=== PATIENT | female | born 1990 | race Caucasian/White ===

== ENCOUNTER 2017-01-29 17:40 | Inpatient (IN) | payer BC, OTHER ==
[2017-02-07] MEDS ORDERED: CARBOPROST TROMETHAMINE 250 MCG/ML 1 ML AMP IM PRN (06:37)
[2017-02-07] MEDS ORDERED: LIDOCAINE 1% (PF) 10 MG/ML (30 ML SDV) SQ PRN (06:37)
[2017-02-07] MEDS ORDERED: METHYLERGONOVINE 0.2 MG/ML 1 ML AMP IM PRN (06:37)
[2017-02-07] MEDS ORDERED: TERBUTALINE 1 MG/ML VIAL SQ PRN (06:37)
[2017-02-07] MEDS ORDERED: OXYTOCIN 10 UNIT/ML 1 ML VIAL IM PRN (06:37)
[2017-02-07 06:45] LABS: Basophils % (A) 1 %; CH 30.1; CHCM 34.4; Eosinophils # (A) 0.1 k/uL (0-0.7); Eosinophils % (A) 2 %; HCT 38.7 % (34.0-46.0); HDW 3.02; HGB 13.3 gm/dL (11.4-16.0); Luc # (Auto) 0.28; Luc % (Auto) 4; Lymphocytes # (A) 1.8 k/uL (1.0-4.8); Lymphocytes % (A) 29 %; MCH 30.1 pg (25.0-35.0); MCHC 34.2 g/dL (31.0-37.0); Mean Platelet Volume 8.5; Monocytes # (A) 0.5 k/uL (0-1.0); Monocytes % (A) 7 %; Neutrophils # (A) 3.7 k/uL (1.3-7.7); Neutrophils % (A) 58 %; RDW 15.1 % (11.5-15.5); WBC 6.5 k/uL (3.8-10.6); WBC (Perox) 6.79
[2017-02-07] MEDS ORDERED: OXYTOCIN 20 UNITS/1000 ML NS 1,000 ML IV SCH (06:45)
[2017-02-07] MEDS: LACTATED RINGERS 1,000 ML IV SCH ×2 (06:49→13:38)
--- NOTE | 2017-02-07 07:02 | P.HPOB ---
History of Present Illness H&P Date: 02/07/17 This is a 26-year-old white female 1 para 0 EDC 01/29/2017 at 41-2/7 weeks' gestation. Patient presents this morning for induction for postdates . She denies uterine contractions, fluid leakage, or vaginal bleeding. Fetus is been active throughout the . history is significant for blood type O positive, group B strep cultures positive, rubella status immune. VDRL testing, hepatitis B surface antigen, gonorrhea and chlamydia cultures, urine culture, hepatitis B surface antigen all negative. One-hour Glucola 123. Past medical history is significant for Campbell's thyroiditis and anemia. Current medications levothyroxine 25 mg once daily, vitamin daily. ALLERGIES none known. Social history patient is , she is a nonsmoker, she denies alcohol or drug use. On exam this is a pleasant white female, 5 foot 10-1/2 inches, 203 pounds, vital signs are stable and patient is afebrile. General physical exam is within normal limits. Fundus is obviously gravid, fundal height 40 cm. heart rate is in the 140s with frequent accelerations, consistent with reactive NST. Cervix is 1 cm dilated, -2 station, 80% effaced, vertex presentation, soft. Artificial amniorrhexis reveals clear fluid. There are no uterine contractions noted at this time. Impression: 41-2/7 weeks intrauterine , here for induction of labor. Positive group B strep cultures. Plan: Penicillin G per hospital protocol. Oxytocin per hospital protocol. Close maternal and surveillance. Anticipate normal spontaneous vaginal delivery. Medications and Allergies Home Medications Medication Instructions Recorded Confirmed Type Levothyroxine Sodium 1 tab PO DAILY 02/07/17 02/07/17 History Pnv,Calcium 72/Iron/Folic Acid 1 tab PO DAILY 02/07/17 02/07/17 History [ Plus Tablet] Sertraline [Zoloft] 1 tab PO DAILY 02/07/17 02/07/17 History Allergies Allergy/AdvReac Type Severity Reaction Status Date / Time No Known Allergies Allergy Verified 02/07/17 06:25 Exam - Vital Signs Vital signs: Intake and Output 02/06/17 02/06/17 02/07/17 14:59 22:59 06:59 Other: Weight 92.079 kg Patient Weight 02/07/17 06:59 Weight 92.079 kg Results Result Diagrams: 02/07/17 06:30 Abnormal Lab Results - Last 24 Hours (Table) 02/07/17 Range/Units 06:30 Plt Count 133 L (150-450) k/uL
[2017-02-07] MEDS ORDERED: PENICILLIN G POTASSIUM 5,000,000 UNIT in DEXTROSE 5% IN WATER 100 ML IV STA ×2 (07:15)
[2017-02-07] MEDS ORDERED: BUTORPHANOL 1 MG/ML 1 ML VIAL IV PRN (11:19)
[2017-02-07] MEDS: PENICILLIN G POTASSIUM 2,500,000 UNIT in DEXTROSE 5% IN WATER 100 ML IV SCH ×6 (13:30→20:43)
[2017-02-07] MEDS ORDERED: BUPIVACAINE (PF) 0.25% 30 ML VIAL ONE (14:25)
[2017-02-07] MEDS ORDERED: fentaNYL (PF) 50 MCG/ML 5 ML AMP ONE (14:25)
[2017-02-07] MEDS ORDERED: SODIUM CHLORIDE 0.9% 100 ML BAG ONE (14:25)
[2017-02-07] MEDS ORDERED: BUPIVACAINE (PF) 0.25% 25 ML, fentaNYL (PF) 200 MCG in SODIUM CHLORIDE 0.9% 71 ML EPIDURAL ONE (17:17)
[2017-02-07] MEDS ORDERED: WITCH HAZEL 1 EACH MED..PAD TOPICAL PRN (19:09)
[2017-02-07] MEDS ORDERED: ZOLPIDEM 5 MG TAB PO PRN (19:09)
[2017-02-07] MEDS ORDERED: diphenhydrAMINE 25 MG CAP PO PRN (19:09)
[2017-02-07] MEDS ORDERED: Acetaminophen-Codeine 300-30mg TAB PO PRN (19:09)
[2017-02-07] MEDS ORDERED: LANOLIN CREAM 5 GM TUBE TOPICAL PRN (19:09)
[2017-02-07] MEDS ORDERED: BENZOCAINE SPRAY 57GM TOPICAL PRN (19:09)
[2017-02-07] MEDS ORDERED: ACETAMINOPHEN TAB 325 MG TAB PO PRN (19:09)
[2017-02-07] MEDS ORDERED: diphenhydrAMINE 50 MG/ML 1 ML VIAL IVP PRN ×2 (19:09)
[2017-02-07] MEDS ORDERED: diphenhydrAMINE 50 MG CAP PO PRN (19:09)
[2017-02-07] MEDS ORDERED: HYDROCORTISONE 2.5% RECTAL CREAM 30 GM TUBE RECTAL PRN (19:09)
[2017-02-07] MEDS ORDERED: SIMETHICONE 80 MG CHEWABLE PO PRN (19:09)
--- NOTE | 2017-02-07 19:09 | P.PROBDLV ---
Vaginal Delivery Note - . Vaginal Delivery Note: This is a 26-year-old white female 1 para 0 EDC 01/29/2017 at 41-2/7 weeks' gestation. Patient presented earlier this morning for induction for postdates . Cervix was favorable, remarkable for positive group B strep cultures, blood type O positive, rubella status immune. Please see my dictated history and physical for details. Artificial amniorrhexis revealed clear fluid. Oxytocin was started and titrated per hospital protocol. Patient eventually requested an epidural and this was placed without difficulty per the anesthesia staff. She progressed well through the first stage of labor and was judged to be completely dilated at 1741 hours. 3 doses of penicillin G were given per hospital protocol. Patient pushed successfully in the dorsal lithotomy position. The perineal body was ultimately prepped and draped in usual sterile fashion. 's head delivered occiput anterior and she restituted accordingly. There was no nuchal cord noted. The oropharynx, nasopharynx, and external nares were bulb suctioned on the perineal body. Patient was officially delivered of a liveborn female at 1850 hours. The umbilical cord was doubly clamped and ligated , she was handed to waiting nurses for evaluation where scores of 8 and 9 at one and 5 minutes respectively were given. The placenta delivered spontaneously, it was inspected and noted to be intact with trivascular cord at 1852 hours. At this time the perineal body was redraped. Inspection of the cervix, vagina, perineum and periurethral areas along with perirectal areas revealed a small spontaneous second-degree perineal laceration. This was repaired in the usual fashion using 3-0 Vicryl suture for excellent reapproximation. The fundus is firm and in the midline, symmetric and 18 week size upon completion of delivery. Infant weighed 3610 g or 7 lbs. 15 oz. Estimated blood loss 250 mL's. The patient her baby and family were all allowed to begin the bonding experience in the LDR.
[2017-02-07] MEDS: SENNOSIDES-DOCUSATE SODIUM 1 EACH TAB PO SCH (21:24)
[2017-02-08] MEDS: IBUPROFEN 600 MG TAB PO PRN ×3 (04:14→20:30)
[2017-02-08 04:24] VITALS: RESP 16
--- NOTE | 2017-02-08 07:52 | P.DS ---
Providers Date of admission: 02/07/17 06:08 Expected date of discharge: 02/08/17 Attending physician: Tasneem Jacobo Primary care physician: Christina Smith [facility] Hospital Course: This is a 26-year-old white female 1 para 0 EDC 01/29/2017 at 41-2/7 weeks' gestation. Patient presented for induction for postdates . was remarkable for positive group B strep cultures, blood type O+, rubella status immune. essentially otherwise unremarkable. Please see my dictated history and physical for details. Artificial amniorrhexis revealed clear fluid. Patient went on to deliver a liveborn female infant with scores of 8 and 9 at one and 5 minutes respectively. weighed 7 lbs. 15 oz. or 3610 g. Estimated blood loss was recorded at 250 mL's. There was a small second-degree spontaneous laceration easily repaired, please see my dictated delivery note for details. This morning the patient is doing well. She is voiding, ambulating, passing flatus without difficulty. Vital signs are stable and she is afebrile. Perineal body is clean and dry. Fundus is firm, midline, symmetric, 18 week size. Breast-feeding is going well, breasts are not engorged. is doing well. Patient will be discharged home later today in good condition. She is reminded no intercourse, tampons or douching. She will use mass-jwy-acembej ibuprofen products as needed for pain, 200 mg pills, 3 every 6 hours when necessary. I' ve asked her to call with any fevers shakes or chills, foul smelling or copious lochia, with the passage of large blood clots, with any pain not alleviated by cata-ego-prysigu ibuprofen, or indeed with any concerns. I have given her prescription for a breast pump. I've reviewed with her the options for contraception and we will discuss this further in the office. Patient Condition at Discharge: Good Plan - Discharge Summary New Discharge Prescriptions: No Action Sertraline [Zoloft] 1 tab PO DAILY Levothyroxine Sodium 1 tab PO DAILY Pnv,Calcium 72/Iron/Folic Acid [ Plus Tablet] 1 tab PO DAILY Discharge Medication List Levothyroxine Sodium 1 tab PO DAILY 02/07/17 [History] Pnv,Calcium 72/Iron/Folic Acid [ Plus Tablet] 1 tab PO DAILY 02/07/17 [ History] Sertraline [Zoloft] 1 tab PO DAILY 02/07/17 [History] Follow up Appointment(s)/Referral(s): Tasneem Jacobo MD [STAFF PHYSICIAN] - 6 Weeks Discharge Disposition: HOME SELF-CARE
[2017-02-08] MEDS: SENNOSIDES-DOCUSATE SODIUM 1 EACH TAB PO SCH ×2 (08:37→20:30)
[2017-02-08 17:09] VITALS: BP 138/81; PULSE 78; TEMP 98.1
== END 2017-02-08 20:55 | disposition home or self-care (01) | DRG 775 ==
LOC: 4FBP 02-07 06:08
PROVIDERS: ADMIT Obstetrics & Gynecology; ATTEND Obstetrics & Gynecology
PROC: 3E033VJ Introduction of Other Hormone into Peripheral Vein, Percutaneous Approach (ICD-10-PCS; principal; 2017-02-07)
PROC: 3E0R3CZ (ICD-10-PCS; principal; 2017-02-07)
PROC: 10E0XZZ Delivery of Products of Conception, External Approach (ICD-10-PCS; principal; 2017-02-07)
PROC: 0KQM0ZZ Repair Perineum Muscle, Open Approach (ICD-10-PCS; principal; 2017-02-07)
PROC: 10907ZC Drainage of Amniotic Fluid, Therapeutic from Products of Conception, Via Natural or Artificial Opening (ICD-10-PCS; principal; 2017-02-07)
PROC: 00HU33Z Insertion of Infusion Device into Spinal Canal, Percutaneous Approach (ICD-10-PCS; principal; 2017-02-07)
DX: O48.0 Post-term pregnancy (principal); E06.3 Autoimmune thyroiditis; Z37.0 Single live birth; O99.284 Endocrine, nutritional and metabolic diseases complicating childbirth; O70.1 Second degree perineal laceration during delivery; Z3A.41 41 weeks gestation of pregnancy; O99.824 Streptococcus B carrier state complicating childbirth; Z79.899 Other long term (current) drug therapy
CPT/HCPCS: 85025; 88307

== ENCOUNTER 2022-02-01 05:54 | Inpatient (IN) | payer BC ==
[2022-02-01] MEDS ORDERED: LIDOCAINE 0.5% (PF) 5 MG/ML (50 ML SDV) SQ PRN (06:22)
[2022-02-01] MEDS ORDERED: CARBOPROST TROMETHAMINE 250 MCG/ML 1 ML AMP IM PRN (06:22)
[2022-02-01] MEDS ORDERED: OXYTOCIN 10 UNIT/ML 1 ML VIAL IM PRN (06:22)
[2022-02-01] MEDS ORDERED: METHYLERGONOVINE 0.2 MG/ML 1 ML AMP IM PRN (06:22)
[2022-02-01] MEDS ORDERED: TERBUTALINE 1 MG/ML VIAL SQ PRN (06:22)
[2022-02-01] MEDS ORDERED: AMPICILLIN 2,000 MG in SODIUM CHLORIDE 0.9% 100 ML IVPB STA (06:22)
[2022-02-01] MEDS ORDERED: OXYTOCIN 30 UNITS/500 ML NS 30 UNIT in SALINE 1 500ML.BAG IV SCH (06:30)
[2022-02-01] MEDS: LACTATED RINGERS 1,000 ML IV SCH ×3 (06:48→12:15)
--- NOTE | 2022-02-01 07:53 | P.HPOB ---
History of Present Illness H&P Date: 02/01/22 Chief Complaint: Here for elective induction of labor with favorable multiparous cervix This is a 31-year-old white female 2 per 1001 EDC 02/08/2020 to 39 and one sevenths weeks' gestation who presents for induction with favorable multiparous cervix. Fetus is been active throughout the . She is having mild irregular spontaneous contractions. She denies fluid leakage or vaginal bleeding. Past medical history significant for anxiety, Campbell's thyroiditis, irregular heartbeat, anemia. Past surgical history is negative. Current medications albuterol inhaler when necessary, levothyroxine 75 MCG's once daily, vitamin daily, sertraline 50 mg tablets once daily. ALLERGIES none known. Family history significant for hypertension, stroke, breast cancer, gout, anemia. Reproductive history normal spontaneous vaginal delivery female at 2017, 7 lbs. 15 oz. history is significant for blood type O+, rubella status immune. VDRL testing, hepatitis B surface antigen, HIV testing, urine culture, gonorrhea and chlamydia cultures all negative. One-hour Glucola 87. Group B strep cultures positive. On exam patient is 5 foot 10 inches, 214 pounds, blood pressure 133/76. General physical exam is within normal limits. Cervix is 3-4 cm dilated, 60% effaced, - 2 station, soft, anterior, vertex. Artificial amniorrhexis reveals abundant clear fluid. heart rate is consistent with reactive NST. Impression: 39 and one sevenths weeks intrauterine , here for induction of labor, all signs reassuring, positive group B strep cultures noted. Plan: Antibiotics are already infusing. Oxytocin per hospital protocol. Continue close maternal and surveillance. Anticipate normal spontaneous vaginal delivery. Analgesic options reviewed with the patient. Review of Systems Constitutional: Reports as per HPI Past Medical History Past Medical History: Thyroid Disorder Additional Past Medical History / Comment(s): hypothyroidism, History of Any Multi-Drug Resistant Organisms: None Reported Past Surgical History: No Surgical Hx Reported Past Anesthesia/Blood Transfusion Reactions: No Reported Reaction Past Psychological History: Anxiety, Panic Disorder Smoking Status: Never smoker Past Alcohol Use History: None Reported Past Drug Use History: None Reported - Past Family History Mother Family Medical History: Hypertension Medications and Allergies Home Medications Medication Instructions Recorded Confirmed Type Levothyroxine Sodium 1 tab PO DAILY 02/07/17 02/01/22 History Pnv,Calcium 72/Iron/Folic Acid 1 tab PO DAILY 02/07/17 02/01/22 History [ Plus Tablet] Sertraline [Zoloft] 1 tab PO DAILY 02/07/17 02/01/22 History Allergies Allergy/AdvReac Type Severity Reaction Status Date / Time No Known Allergies Allergy Verified 02/01/22 06:21 Exam Vital Signs Temp Pulse Resp BP 02/01/22 06:20 96.4 F L 87 16 133/76 Intake and Output 01/31/22 02/01/22 02/01/22 22:59 06:59 14:59 Other: Weight 97.069 kg As per dictation Assessment and Plan Assessment: Federico 9 and one sevenths week intrauterine , here for elective induction of labor, all signs reassuring, positive group B strep cultures, antibiotics already infusing. Plan: Penicillin G per hospital protocol. Oxytocin per hospital protocol. Analgesic options reviewed. Close maternal and surveillance. Anticipate normal spontaneous vaginal delivery. Time with Patient: Less than 30
[2022-02-01 07:57] LABS: Anisocytosis Slight; Basophils % (A) 0 %; Eosinophils # (A) 0.1 k/uL (0-0.7); Eosinophils % (A) 2 %; HCT 37.5 % (34.0-46.0); HGB 12.1 gm/dL (11.4-16.0); Hypochromasia Slight; Lymphocytes # (A) 1.6 k/uL (1.0-4.8); Lymphocytes % (A) 27 %; MCH 28.2 pg (25.0-35.0); MCHC 32.2 g/dL (31.0-37.0); MCV 87.6 fL (80.0-100.0); Mean Platelet Volume 9.7; Monocytes # (A) 0.4 k/uL (0-1.0); Monocytes % (A) 6 %; Neutrophils # (A) 3.5 k/uL (1.3-7.7); Neutrophils % (A) 60 %; Platelet Count 141 k/uL (150-450); RBC 4.28 m/uL (3.80-5.40); RDW 16.2 % (11.5-15.5); WBC 5.8 k/uL (3.8-10.6)
[2022-02-01] MEDS: AMPICILLIN 1,000 MG in SODIUM CHLORIDE 0.9% 50 ML IVPB SCH ×2 (10:41→15:33)
[2022-02-01] MEDS ORDERED: ROPIVACAINE 5MG/ML 20ML VIAL ONE (10:43)
[2022-02-01] MEDS ORDERED: fentaNYL (PF) 50 MCG/ML 5 ML AMP ONE (10:43)
[2022-02-01] MEDS ORDERED: SODIUM CHLORIDE 0.9% 100 ML BAG ONE (10:43)
[2022-02-01] MEDS ORDERED: LANOLIN CREAM 5 GM TUBE TOPICAL PRN (15:21)
[2022-02-01] MEDS ORDERED: SIMETHICONE 80 MG CHEWABLE PO PRN (15:21)
[2022-02-01] MEDS ORDERED: diphenhydrAMINE 50 MG CAP PO PRN (15:21)
[2022-02-01] MEDS ORDERED: ZOLPIDEM 5 MG TAB PO PRN (15:21)
[2022-02-01] MEDS ORDERED: HYDROCORTISONE 2.5% RECTAL CREAM 30 GM TUBE RECTAL PRN (15:21)
[2022-02-01] MEDS ORDERED: diphenhydrAMINE 25 MG CAP PO PRN (15:21)
[2022-02-01] MEDS ORDERED: diphenhydrAMINE 50 MG/ML 1 ML VIAL IVP PRN ×2 (15:21)
[2022-02-01] MEDS ORDERED: BENZOCAINE/MENTHOL SPRAY 1 GM/SPRAY AEROSOL TOPICAL PRN (15:21)
--- NOTE | 2022-02-01 15:21 | P.PROBDLV ---
Vaginal Delivery Note - . Vaginal Delivery Note: This is a 31-year-old female 2 para 1001 EDC 02/07/2022 at 39 and one sevenths weeks' gestation. Patient presented this morning for induction with favorable multiparous cervix. is remarkable for blood type O+, rubella status immune, group B strep cultures positive. Please see dictated history and physical for details. Oxytocin was started per hospital protocol. Antibiotics were given, 2 doses received. Epidural was placed per her request. heart tones were reassuring throughout the first and second stages of labor. Artificial amniorrhexis revealed very lightly stained meconium-stained fluid. Patient progressed well through the first stage of labor and became completely dilated at 1424 hrs. and began the second stage of labor at that time. With excellent maternal expulsive efforts the 's head ultimately crowned on the perineum. The perineal body was prepped and draped in usual sterile fashion. Infant's head delivered occiput anterior and he restituted accordingly. There was no nuchal cord noted. The right or anterior shoulder was delivered easily from underneath the pubic symphysis at which time the oropharynx, nasopharynx, and external nares were all bulb suctioned. Patient was officially delivered of a liveborn male infant at 15 4 hours. Umbilical cord was doubly clamped and ligated, he was handed to waiting fish filleter for evaluation where scores of 9 and 9 at one and 5 minutes respectively were given. Infant weighs 9 lbs. 2 oz. or 4130 g. The placenta delivered spontaneously, it was inspected and noted to be intact with trivascular cord. Uterus is then massaged. Careful inspection of cervix, vagina, perineum, periurethral, and perirectal areas reveals a small first-degree perineal laceration easily repaired in the usual fashion using repeat suture. All sponge needle and enhancement counts are correct. Total estimated blood loss 300 mL's. Patient and her are requesting circumcision further infant son.
[2022-02-01] MEDS: IBUPROFEN 600 MG TAB PO PRN (17:08)
[2022-02-01] MEDS ORDERED: BUTORPHANOL 1 MG/ML 1 ML VIAL IV ONE (18:30)
--- NOTE | 2022-02-01 18:55 | P.PN ---
Subjective Progress Note Date: 02/01/22 Principal diagnosis: 3 hours status post vaginal delivery, increased vaginal bleeding at the bedside Estimated post bleeding per nursing staff 300 mL, with clots. Objective - Vital Signs Vital signs: Vital Signs Temp 98.2 F 02/01/22 15:30 Pulse 77 02/01/22 18:41 Resp 17 02/01/22 18:41 BP 134/86 02/01/22 18:41 Pulse Ox FiO2 Intake & Output 01/31/22 02/01/22 02/01/22 18:59 06:59 18:59 Intake Total 2217.033 Output Total 1520 Balance 697.033 Weight 97.069 kg Intake: IV 2000 Intake, IV Titration 217.033 Amount Oxytocin 30 Units/500 ml 217.033 Ns 30 unit In Saline 1 500ml.bag @ Per Protocol IV .Q0M [facility] Rx#:[id number] Output: Urine 600 Estimated Blood Loss 300 Output, Quantitative 620 Blood Loss - Constitutional General appearance: Present: average body habitus, cooperative - EENT Eyes: Present: PERRLA ENT: Present: hearing grossly normal - Respiratory Respiratory: bilateral: CTA - Cardiovascular Rhythm: regular - Gastrointestinal General gastrointestinal: Present: normal bowel sounds - Genitourinary Genitourinary Comment(s): Fundus firm, symmetric, midline, 18 week size. Examination at the bedside after 1 mg of Stadol given intravenously. Cervix fully intact. Perineal body intact. Internal examination of the intrauterine cavity revealed several small to moderate blood clots. Cavity is negative otherwise to palpation, intact, no products of conception or other issues identified. - Integumentary Integumentary: Present: normal - Neurologic Neurologic: Present: CNII-XII intact - Musculoskeletal Musculoskeletal: Present: strength equal bilaterally - Psychiatric Psychiatric: Present: A&O x's 3 - Labs CBC & Chem 7: 02/01/22 07:17 Labs: Abnormal Lab Results - Last 24 Hours (Table) 02/01/22 Range/Units 07:17 RDW 16.2 H (11.5-15.5) % Plt Count 141 L (150-450) k/uL Assessment and Plan Assessment: Federico 9 and one sevenths week intrauterine , here for elective induction of labor, all signs reassuring, positive group B strep cultures, antibiotics already infusing. (1) bleeding Narrative/Plan: We'll check CBC now. Methergine given. Good results. Continue IV through the night. Continue bedside massage of the uterus, call with any increased bleeding. Vital signs are stable and patient is asymptomatic at this time. Minimal bleeding currently. Current Visit: Yes Status: Acute Code(s): O72.1 - OTHER IMMEDIATE HEMORRHAGE SNOMED Code(s): 04735551 Plan: Penicillin G per hospital protocol. Oxytocin per hospital protocol. Analgesic options reviewed. Close maternal and surveillance. Anticipate normal spontaneous vaginal delivery. Time with Patient: Less than 30
[2022-02-01] MEDS ORDERED: miSOPROStoL 200 MCG TAB RECTAL ONE (19:09)
[2022-02-01 19:51] LABS: Basophils % (A) 0 %; Eosinophils % (A) 0 %; HGB 11.9 gm/dL (11.4-16.0); Lymphocytes # (A) 1.4 k/uL (1.0-4.8); Lymphocytes % (A) 9 %; MCH 27.4 pg (25.0-35.0); MCHC 31.2 g/dL (31.0-37.0); MCV 87.7 fL (80.0-100.0); Mean Platelet Volume 9.8; Monocytes # (A) 0.9 k/uL (0-1.0); Monocytes % (A) 6 %; Neutrophils # (A) 11.9 k/uL (1.3-7.7); Neutrophils % (A) 83 %; Platelet Count 129 k/uL (150-450); RBC 4.33 m/uL (3.80-5.40); RDW 15.9 % (11.5-15.5); WBC 14.4 k/uL (3.8-10.6)
[2022-02-01 20:13] VITALS: RESP 16
[2022-02-01] MEDS: SENNOSIDES-DOCUSATE SODIUM 1 EACH TAB PO SCH (20:37)
[2022-02-01] MEDS: ACETAMINOPHEN TAB 325 MG TAB PO PRN (20:38)
[2022-02-01] MEDS: SERTRALINE 25 MG TAB PO SCH (20:38)
[2022-02-02] MEDS: IBUPROFEN 600 MG TAB PO PRN ×3 (01:58→14:22)
[2022-02-02] MEDS: ACETAMINOPHEN TAB 325 MG TAB PO PRN ×2 (06:01→12:31)
[2022-02-02] MEDS ORDERED: LEVOTHYROXINE 75 MCG TAB PO SCH (06:30)
[2022-02-02 07:12] LABS: Anisocytosis Slight; Basophils % (A) 0 %; Eosinophils # (A) 0.1 k/uL (0-0.7); Eosinophils % (A) 1 %; HCT 34.4 % (34.0-46.0); HGB 10.9 gm/dL (11.4-16.0); Lymphocytes # (A) 1.6 k/uL (1.0-4.8); Lymphocytes % (A) 17 %; MCH 27.8 pg (25.0-35.0); MCHC 31.8 g/dL (31.0-37.0); MCV 87.6 fL (80.0-100.0); Mean Platelet Volume 10.1; Monocytes # (A) 0.7 k/uL (0-1.0); Monocytes % (A) 8 %; Neutrophils % (A) 72 %; Platelet Count 127 k/uL (150-450); RBC 3.92 m/uL (3.80-5.40); RDW 16.2 % (11.5-15.5); WBC 9.8 k/uL (3.8-10.6)
[2022-02-02] MEDS: SENNOSIDES-DOCUSATE SODIUM 1 EACH TAB PO SCH (08:19)
[2022-02-02] MEDS: SERTRALINE 25 MG TAB PO SCH (08:19)
--- NOTE | 2022-02-02 09:18 | P.DS ---
Providers Date of admission: 02/01/22 05:54 Expected date of discharge: 02/02/22 Attending physician: Tasneem Jacobo Primary care physician: Alessia Kelly - Discharge Diagnosis(es) (1) bleeding Current Visit: Yes Status: Acute Hospital Course: This is a 31-year-old white female 2 para 1001 EDC 02/08/2020 to 39 and one sevenths weeks' gestation who presented with a favorable multiparous cervix for induction of labor. Artificial amniorrhexis revealed thin meconium-stained fluid. Blood type O+, rubella status immune. Group B strep cultures positive. Please see dictation for details. Penicillin G was given 2 doses. The dura was placed per the patient's request. Patient went on to deliver vaginally a liveborn male infant with scores of 9 and 9 at one and 5 minutes respectively. He weighed 9 lbs. 2 oz. or 4130 g. There was a small first-degree perineal laceration easily repaired. After delivery, vaginal bleeding was somewhat brisk with clot passage. Examination at the bedside manually revealed intrauterine clots which were removed successfully. Methergine was given 1, and Cytotec placed per rectum 1000 mg. Excellent and immediate results were obtained. New This morning the patient is doing well. Her bleeding is minimal. Her pain is minimal. She has no complaints. There is no dizziness or lightheadedness. Hemoglobin this morning is stable at 10.9, platelets 127,000. Fundus is firm and in the midline, symmetric, 18 week size, minimally tender. Extremities are negative for edema. Chest is clear in all johns. circumcision has been performed. Patient is judged to be in good condition for discharge home. She will continue taking her vitamin daily. She will call with any fevers shakes or chills, foul smelling or copious lochia, with the passage of large blood clots, with any pain not alleviated by [id number] products, or indeed with any concerns. We have briefly discussed options for contraception and we will discuss this further in the office. [place] infant will follow-up with body component engineer as per recommendations. Assessment: Doing well post day #1 Patient Condition at Discharge: Good Plan - Discharge Summary Discharge Rx Participant: No New Discharge Prescriptions: No Action Sertraline [Zoloft] 1 tab PO DAILY Levothyroxine Sodium 1 tab PO DAILY Pnv,Calcium 72/Iron/Folic Acid [ Plus Tablet] 1 tab PO DAILY Discharge Medication List Levothyroxine Sodium 1 tab PO DAILY 02/07/17 [History] Pnv,Calcium 72/Iron/Folic Acid [ Plus Tablet] 1 tab PO DAILY 02/07/17 [History] Sertraline [Zoloft] 1 tab PO DAILY 02/07/17 [History] Follow up Appointment(s)/Referral(s): Tasneem Jacobo MD [STAFF PHYSICIAN] - 6 Weeks Discharge Disposition: HOME SELF-CARE
[2022-02-02 15:29] VITALS: BP 138/78; PULSE 82; TEMP 97.7
== END 2022-02-02 16:24 | disposition home or self-care (01) | DRG 806 ==
LOC: 4FBP 05:54
PROVIDERS: ADMIT Obstetrics & Gynecology; ATTEND Obstetrics & Gynecology
PROC: 10E0XZZ Delivery of Products of Conception, External Approach (ICD-10-PCS; principal; 2022-02-01)
PROC: 0HQ9XZZ Repair Perineum Skin, External Approach (ICD-10-PCS; 2022-02-01)
DX: O70.0 First degree perineal laceration during delivery (principal); O72.1 Other immediate postpartum hemorrhage; Z37.0 Single live birth; E06.3 Autoimmune thyroiditis; F41.0 Panic disorder [episodic paroxysmal anxiety]; O77.0 Labor and delivery complicated by meconium in amniotic fluid; O99.344 Other mental disorders complicating childbirth; Z79.899 Other long term (current) drug therapy
CPT/HCPCS: 85025; 86850; 86900; 86901

== ENCOUNTER 2024-09-24 08:41 | Day surgery (SDC) | payer BC ==
[~2024-09-24 08:41] MED LIST: Pre Op ABX Message 1 EACH MISC MISCELLANE ONE
[2024-09-24] MEDS ORDERED: HYDROmorphone 0.5 MG/0.5 ML SYRINGE IVP PRN (09:01)
[2024-09-24] MEDS ORDERED: MIDAZOLAM 2 MG/2 ML VIAL IV PRN (09:01)
--- NOTE | 2024-09-24 09:24 | P.HPIHPCON ---
History of Present Illness H&P Date: 09/24/24 Chief Complaint: Abnormal uterine bleeding, endometrial polyp Ms. Dominguez is a 34 year [id number] presenting for surgical management of AUB and endometrial polyp. Recent US of the pelvis showed a 9cm uterine with a 7mm endometrial polyp. Consent for Procedure: I have explained the operation/procedure to the patient, including the risks, benefits, side effects, alternative therapies (including not receiving the proposed treatment or service), the likelihood of the patient achieving his/her goals, and potential recuperation problems for the procedure/sedation/analgesia, as well as any blood products, if indicated. I also explained to the patient the risks, benefits and side effects of the alternatives, as well as the risks related to not receiving the proposed procedure, care, treatment, or services. Past Medical History Past Medical History: Thyroid Disorder Additional Past Medical History / Comment(s): hypothyroidism, History of Any Multi-Drug Resistant Organisms: None Reported Past Surgical History: No Surgical Hx Reported Past Anesthesia/Blood Transfusion Reactions: No Reported Reaction Smoking Status: Never smoker - Past Family History Mother Family Medical History: Hypertension Medications and Allergies Home Medications Medication Instructions Recorded Confirmed Type Levothyroxine Sodium 1 tab PO DAILY 02/07/17 09/24/24 History Sertraline [Zoloft] 1 tab PO DAILY 02/07/17 09/24/24 History Incassia 1 tab PO DAILY 09/20/24 09/24/24 History Allergies Allergy/AdvReac Type Severity Reaction Status Date / Time diltiazem Allergy Rash/Hives Verified 09/24/24 09:06 Surgical - Exam Focused physical exam is performed. This is a healthy-appearing female in no apparent distress. Breathing is non-labored. Abdomen is soft and non-tender. Extremities non-tender and non-edematous. Assessment and Plan Assessment: 34 year old presenting for surgical management of AUB and endometrial polyp Plan: Risks, benefits, and alternatives to Hysteroscopy D&C with Myosure Polypectomy, Liletta IUD insertion are discussed with the patient including risk of bleeding, infection, uterine perforation, damage to surrounding structures, IUD expulsion, unscheduled bleeding after IUD insertion. Patient understands these risks and desires to proceed with surgery as discussed. All questions answered.
[2024-09-24] MEDS: IV FLUID CONTINUATION 1,000 ML IV ONE (09:30)
[2024-09-24] MEDS: LACTATED RINGERS 1,000 ML IV SCH (09:30)
[2024-09-24] MEDS: DEXAMETHASONE SOD PHOSPHATE 4 MG/ML 1 ML VIAL IV ONE (09:35)
[2024-09-24] MEDS: ONDANSETRON 4 MG/2 ML VIAL IVP ONE (09:35)
[2024-09-24] MEDS: SCOPOLAMINE 1 MG/72 HR PATCH TRANSDERM ONE (09:36)
[2024-09-24] MEDS ORDERED: PROPOFOL 10 MG/ML 20 ML VIAL IV ONE (09:55)
[2024-09-24] MEDS ORDERED: MIDAZOLAM 2 MG/2 ML VIAL ONE (09:55)
[2024-09-24] MEDS ORDERED: fentaNYL (PF) 50 MCG/ML 2 ML AMP ONE (09:55)
[2024-09-24] MEDS ORDERED: LIDOCAINE 1% INJ 10MG/ML (20 ML MDV) ONE (09:55)
[2024-09-24] MEDS ORDERED: GLYCOPYRROLATE 0.2 MG/ML 2 ML VIAL ONE (09:55)
--- NOTE | 2024-09-24 10:33 | P.OP ---
Date of Procedure: 09/24/24 Preoperative Diagnosis: 1. AUB 2. Endometrial Polyp Postoperative Diagnosis: Same Procedure(s) Performed: Hysteroscopy D&C with Polypectomy, Liletta IUD insertion Implants: Liletta IUD Anesthesia: [place] Surgeon: Nicole Borden Estimated Blood Loss (ml): 1 IV fluids (ml): 400 Urine output (ml): 25 Pathology: other (endometrial curettings) Condition: stable Disposition: same day Indications for Procedure: Ms. Dominguez is a 34 year old presenting for surgical management of AUB and endometrial polyp. Risks, benefits, and alternatives to Hysteroscopy D&C with Myosure Polypectomy, Liletta IUD insertion are discussed with the patient including risk of bleeding, infection, uterine perforation, damage to surrounding structures, IUD expulsion, unscheduled bleeding after IUD insertion. Patient understands these risks and desires to proceed with surgery as discussed. All questions answered. Operative Findings: Endometrial polyp is noted prolapsing into the endoverical canal. The background endometrial is proliferative in appearance. Bilateral ostia visuallized. Uterus sounds to 8.5 centimeters. Description of Procedure: Patient is brought to the operating suite and placed in the dorsal lithotomy position. The cervix perineum and lower abdomen are prepped and draped in the usual sterile fashion. Examination under anesthesia reveals an anteverted uterus. Adnexa are negative bilaterally. The bladder is drained for approximately 25 mL of clear yellow urine. The anterior lip of the cervix is grasped with a double toothed tenaculum after the weighted speculum is placed into the vagina. The uterus sounds to a depth of 8.5 cm in the anteverted position. The Hanks dilators are placed and the cervix was dilated to accomocated the hysteroscope. The hysteroscope was then introduced and with saline infusion the cavity is distended. A posterior endometrial polyp is noted along with shaggy proliferative type endometrium. The Myosure Lite is inserted through the hysteroscope and is used to resect the polyp as well as collected global endometrial curettings for sampling. The hysteroscopy is then removed. The Liletta IUD is inserted into the uterus without difficulty. The strings are trimmed to 3 centimeters inferior to the exterior cervical os. All sponge needle and instrument counts are correct. Instrumentation is removed from the vagina and the patient is brought to the recovery room in stable condition. Jose Armandoadol is given prior to leaving the operative suite. Patient will follow up with me in the office. Verbal and written instructions are provided.
[2024-09-24 10:50] VITALS: TEMP 97
[2024-09-24 11:49] VITALS: BP 121/84; PULSE 71; RESP 14
== END 2024-09-24 12:03 | disposition home or self-care (01) ==
LOC: OR 08:41
PROVIDERS: ATTEND Obstetrics & Gynecology
DX: N84.1 Polyp of cervix uteri (principal); E03.9 Hypothyroidism, unspecified; F41.9 Anxiety disorder, unspecified; Z79.890 Hormone replacement therapy; Z79.899 Other long term (current) drug therapy; Z88.8 Allergy status to other drugs, medicaments and biological substances
CPT/HCPCS: 58300; 58558; 81025; 88305; J2250; J1100; J2405; J2003; J3010; J2704; J1596